=== PATIENT | male | born 1970 | race Two or more races ===

== ENCOUNTER 2021-08-04 13:27 | Emergency (ER) | payer MEDICAID, OTHER, SELFPAY ==
--- NOTE | ~2021-08-04 | XR_ITS ---
EXAMINATION: XR CHEST CLINICAL INFORMATION: Chest pain. COMPARISON: None TECHNIQUE: Frontal view of the chest was obtained. FINDINGS: No significant abnormality is noted involving the heart, lungs, mediastinum, bony thorax or soft tissues. XR/XR chest 1V IMPRESSION: Unremarkable examination.
[2021-08-04 13:38] VITALS: BP 140/95; PULSE 78; RESP 18; TEMP 36.9; O2SAT 98; BMI 27.6
--- NOTE | 2021-08-04 13:56 | ECG_ITS ---
Test Reason : CP Blood Pressure : / mmHG Vent. Rate : 079 BPM Atrial Rate : 079 BPM P-R Int : 142 ms QRS Dur : 098 ms QT Int : 368 ms P-R-T Axes : 072 022 013 degrees QTc Int : 421 ms Normal sinus rhythm Normal ECG No previous ECGs available Referred By: Generic ED Physician Electronically Signed By:NICK KEITH MD
[2021-08-04 14:11] LABS: MANUAL DIFF FLAG NO
[2021-08-04 14:17] LABS: Basophils Percent Auto 0.6 % (0-2); Eosinophils Absolute Auto 0.1 X10*3/uL (0.0-0.4); Hematocrit 42.7 % (42.0-52.0); Hemoglobin 14.1 g/dl (14.0-18.0); Imm Gran Abs Auto 0.03 X10*3/uL (0.00-0.03); Imm Gran Pct Auto 0.4 % (0.0-0.4); Lymphocytes Absolute Auto 2.2 X10*3/uL (1.2-4.9); Lymphocytes Percent Auto 31.6 % (20-40); Mean Corpuscular Hemoglobin 28.4 pg (27.0-33.0); Mean Corpuscular Volume 86.1 fL (80.0-98.0); Mean Platelet Volume 9.3 fL (9.4-12.4); Monocytes Absolute Auto 0.4 X10*3/uL (0.1-1.2); Monocytes Percent Auto 6.3 % (2-11); Neutrophils Absolute Auto 4.2 x10*3/uL (2.0-8.3); Neutrophils Percent Auto 60.1 % (45-73); Platelet Count 237 X10*3/uL (160-400); Red Blood Count 4.96 X10*6/uL (4.60-5.80)
[2021-08-04 14:42] LABS: Anion Gap 13 (12-20); Blood Urea Nitrogen 11 mg/dL (9-16); Calcium 9.9 mg/dL (8.4-10.2); Carbon Dioxide 24 mmol/L (22-29); Chloride 107 mmol/L (96-108); Creatinine Clr Calc Pharmacy 99.9; Estimated Glomerular Filt Rate > 60; Glucose Random 121 mg/dL (60-115); Potassium 3.9 mmol/L (3.3-5.1); Sodium 140 mmol/L (135-145)
[2021-08-04 15:06] LABS: Troponin-I High Sensitivity < 3.5 ng/L (<3.5-35.0)
[2021-08-04 15:49] VITALS: BP 130/82; PULSE 80; RESP 18; TEMP 36.7; O2SAT 97
[2021-08-04 16:00] VITALS: PULSE 89; RESP 15
[2021-08-04 16:14] VITALS: PULSE 83
--- NOTE | 2021-08-04 16:21 | PC.NURSE ---
pt a&ox3, vss, provider in room w pt - communicating via Hungarian uniformer. episodes of racing heart a couple of times daily, some chronic leg weakness/back pain, pt also reporting some ear/wax build up in both ear. no new orders at this time.
--- NOTE | 2021-08-04 16:24 | ED.CHESTPAIN ---
HPI - Chest Pain General Chief Complaint: Chest Pain Stated Complaint: chest pain Time Seen by Provider: 08/04/21 15:58 Source: patient, family and partition notcher History of Present Illness HPI narrative: Previously healthy 51-year-old Cameroonian speaking male, originally from [place], in this country for 3 years, but without PCP, presents with intermittent palpitations over the past several weeks. He attributed it to increased stress and anxiety. He has never had before. It lasts 10-15 minutes. It is not associated with pain. He denies any recent illnesses. He has not had any recent cardiac workups. No history of smoking. No history of hypertension, high cholesterol, or family cardiac history. Secondary complaint of occasionally his right leg feels weak after he has been walking while. This is also been intermittent. No weakness now. It only happens after exertion. No upper extremity symptoms. No facial symptoms. No speech issues. He has some low back pain occasionally feels radiate down the back of his leg. Thinks this may be related to the intermittent weakness as well. He has never as bad worked up. Third issue earwax buildup bilateral ears, left more so than right. Related Data Previous Rx's Medication Instructions Recorded carbamide peroxide 6.5 % ear drops 5 drp OTIC (EARS) Q12H 4 Days #15 08/04/21 (Debrox) ml sertraline 25 mg tablet (Zoloft) 25 mg PO DAILY #30 tab 08/04/21 Allergies Allergy/AdvReac Type Severity Reaction Status Date / Time No Known Allergies Allergy Verified 08/04/21 17:23 Review of Systems Constitutional: Comments: No weakness. No fevers or chills ENT: Comments: Ear wax buildup as mentioned without your pain Cardiovascular: Comments: Palpitations without chest pain Respiratory: Comments: No cough or dyspnea Gastrointestinal: Comments: No GI symptoms Musculoskeletal: Comments: Low back pain with occasional pain radiating down his right leg. None now Integumentary/Breasts: Comments: No rash Neurologic: Comments: Occasional right leg weakness with exertion. Psychiatric: Comments: Recent increase in anxiety. No SI or HI PMFSH Past Medical History Medical History Back pain Leg weakness Stress at work Social History Social History Alcohol intake: never Patient Tobacco Use Status: Never used Tobacco Use of substances other than those prescribed or required for medical reasons: No Advance Directives: No Advance Directives Information Provided: No Physical Exam Vital Signs: Vital Signs: Last Vital Signs Temp 98.1 F 08/04/21 15:49 Pulse 89 08/04/21 16:00 Resp 15 08/04/21 16:00 BP 130/82 08/04/21 15:49 Pulse Ox 97 08/04/21 15:49 BMI result Body Mass Index 27.6 Const: Other: Awake and alert in no acute distress HEENT: Other: Bilateral cerumen. Left greater than right Resp: Other: Clear and equal bilaterally. No wheezes rales or rhonchi. Cardio: Other: Regular rate and rhythm without murmurs rubs or gallops Skin: Other: Warm pink and dry without rash Neuro: Other: Nonfocal. Ambulatory without difficulty. No facial droop. Course Course Course Narrative: Palpitations. Potentially secondary to stress and anxiety and/or panic disorder. Cardiac ischemia Dysrhythmia such is paroxysmal AFib. Or SVT. Cerumen impaction Right leg sciatica No evidence for stroke or TIA. EKG normal sinus rhythm without ischemia or dysrhythmia. Patient on a monitor in the emergency department without dysrhythmia. Lab work is normal. Troponin is normal. X-ray is normal. I discussed all of these findings with the patient through video port use interpretation. We will refer to Cardiology for further workup of possible dysrhythmia and question of Girma type monitoring. PCP referral MDM - Chest Pain Lab Data Result diagrams: 08/04/21 14:05 08/04/21 14:05 Labs: Lab Results 08/04/21 08/04/21 08/04/21 Range/Units 14:05 14:05 14:05 WBC 7.0 (4.8-10.8) X10*3/uL RBC 4.96 (4.60-5.80) X10*6/uL Hgb 14.1 (14.0-18.0) g/dl Hct 42.7 (42.0-52.0) % MCV 86.1 (80.0-98.0) fL MCH 28.4 (27.0-33.0) pg MCHC 33.0 (31.0-36.0) g/dl RDW 13.0 (11.0-16.0) % Plt Count 237 (160-400) X10*3/uL MPV 9.3 L (9.4-12.4) fL Immature Gran % (Auto) 0.4 (0.0-0.4) % Neut % (Auto) 60.1 (45-73) % Lymph % (Auto) 31.6 (20-40) % [place] % (Auto) 6.3 (2-11) % Eos % (Auto) 1.0 (0-4) % Baso % (Auto) 0.6 (0-2) % Lymph # (Auto) 2.2 (1.2-4.9) X10*3/uL [place] # (Auto) 0.4 (0.1-1.2) X10*3/uL Eos # (Auto) 0.1 (0.0-0.4) X10*3/uL Baso # (Auto) 0.0 (0.0-0.2) X10*3/uL Abs Immat Gran (auto) 0.03 (0.00-0.03) X10*3/uL Absolute Neuts (auto) 4.2 (2.0-8.3) x10*3/uL Absolute Nucleated RBC 0.000 (0.0-0.012) X10*3/uL Nucleated RBC % (auto) 0.0 (0.0-0.2) /100WBC Sodium 140 (135-145) mmol/L Potassium 3.9 (3.3-5.1) mmol/L Chloride 107 (96-108) mmol/L Carbon Dioxide 24 (22-29) mmol/L Anion Gap 13 (12-20) BUN 11 (9-16) mg/dL Creatinine 0.91 (0.5-1.4) mg/dL Estim Creat Clear Calc 99.9 Estimated GFR > 60 Random Glucose 121 H (60-115) mg/dL Calcium 9.9 (8.4-10.2) mg/dL Troponin I High Sens < 3.5 (<3.5-35.0) ng/L Discharge Plan Discharge Clinical Impression: Heart palpitations, Anxiety, Cerumen impaction Patient Disposition: Home, Self-Care Instructions: Heart Palpitations (DC), Anxiety (ED) Additional Instructions: manuel ariane meredith [facility]. [phone] Prescriptions: New sertraline [Zoloft] 25 mg tablet 25 mg PO DAILY Qty: 30 0RF Debrox 6.5 % drops 5 drp otic (ears) Q12H 4 Days Qty: 15 0RF Referrals: Beto Dennis MD [Physician] - Interventions: ED Discharge Assessment Last Done: 08/04/21 16:53 Discharge Date/Time: 08/04/21 16:54 Print Language: Cameroonian
== END 2021-08-04 16:54 | disposition home or self-care (01) ==
PROVIDERS: Emergency Provider Emergency Medicine
DX: R00.2 Palpitations (principal); F41.9 Anxiety disorder, unspecified; H61.23 Impacted cerumen, bilateral
CPT/HCPCS: 36415; 71045; 80048; 84484; 85025; 93005; 99283; 99284

== ENCOUNTER 2021-11-03 20:35 | Emergency (ER) | payer MEDICAID, OTHER, SELFPAY ==
--- NOTE | ~2021-11-03 | CT_ITS ---
EXAMINATION: CT ABDOMEN AND PELVIS WITHOUT CONTRAST CLINICAL INFORMATION: Acute kidney injury COMPARISON: None TECHNIQUE: Multidetector volumetric imaging was performed from the superior aspect of the liver through the pubic symphysis. Sagittal and coronal reformatted images were obtained on the technologist's workstation. This CT examination was performed using dose optimization techniques as appropriate, variously including the following: *Automated exposure control *Adjustment of mA and/or kV according to patient size (this includes techniques or standardized protocols for targeted exams where dose is matched to indication/reason for exam; i.e. extremities or head) *Use of iterative reconstruction technique DLP: 539 mGy-cm FINDINGS: LUNG BASES: The visualized lung bases are unremarkable. LIVER, GALLBLADDER, AND BILIARY TREE: The liver is normal in size, shape, and attenuation. No focal hepatic lesion or biliary ductal dilatation is present. Gallbladder unremarkable. PANCREAS: Marked fatty atrophy. No pancreatic mass or inflammation. SPLEEN: Unremarkable. ADRENAL GLANDS: Unremarkable. KIDNEYS AND URETERS: There is a 8 x 3 mm calculus in the proximal right ureter, just distal to the ureteropelvic junction associated with mild upstream hydronephrosis and perinephric stranding. Chronic atrophy of the left kidney, with compensatory hypertrophy of the right kidney. There is a simple cyst in the upper pole of left kidney measuring 2.5 cm benign requiring no follow-up. A coarse cortical calcification is present in the left kidney. BLADDER: Unremarkable. GASTROINTESTINAL TRACT: Scattered colonic diverticula, most concentrated within the transverse colon. No evidence of diverticulitis. Normal appendix. Stomach and small bowel unremarkable. ABDOMINAL WALL: No significant hernia is appreciated. LYMPH NODES: Normal. VASCULAR: Unremarkable. PELVIC VISCERA: Prostatomegaly. Seminal vesicles unremarkable. OSSEOUS STRUCTURES: No acute or suspicious osseous abnormalities. CT/CT abdomen pelvis wo IV con IMPRESSION: * There is an 8 x 3 mm calculus in the proximal right ureter associated mild hydronephrosis. * Atrophic left kidney with compensatory hypertrophy of the right kidney. * Diverticulosis without evidence of diverticulitis. * Severe fatty atrophy of the pancreas.
[2021-11-03 21:39] VITALS: BP 132/86; PULSE 75; TEMP 37.3; O2SAT 98
[2021-11-03 21:42] VITALS: BP 132/86; PULSE 75; RESP 20; TEMP 37.3; O2SAT 98; BMI 34.4
[2021-11-03 22:30] LABS: MANUAL DIFF FLAG NO
[2021-11-03 22:34] LABS: Basophils Percent Auto 0.3 % (0-2); Eosinophils Percent Auto 0.2 % (0-4); Hematocrit 41.5 % (42.0-52.0); Hemoglobin 13.9 g/dl (14.0-18.0); Imm Gran Abs Auto 0.03 X10*3/uL (0.00-0.03); Imm Gran Pct Auto 0.3 % (0.0-0.4); Lymphocytes Absolute Auto 1.4 X10*3/uL (1.2-4.9); Lymphocytes Percent Auto 13.6 % (20-40); Mean Corpuscular HGB Conc 33.5 g/dl (31.0-36.0); Mean Corpuscular Hemoglobin 28.7 pg (27.0-33.0); Mean Corpuscular Volume 85.6 fL (80.0-98.0); Mean Platelet Volume 9.3 fL (9.4-12.4); Monocytes Absolute Auto 0.4 X10*3/uL (0.1-1.2); Monocytes Percent Auto 3.9 % (2-11); Neutrophils Absolute Auto 8.2 x10*3/uL (2.0-8.3); Neutrophils Percent Auto 81.7 % (45-73); Platelet Count 231 X10*3/uL (160-400); Red Blood Count 4.85 X10*6/uL (4.60-5.80); Red Cell Distribution Width 12.7 % (11.0-16.0)
[2021-11-03 22:58] LABS: Alanine Aminotransferase 22 U/L (0-40); Albumin Level 4.6 g/dL (3.5-5.0); Alkaline Phosphatase 74 U/L (39-117); Anion Gap 14 (12-20); Aspartate Amino Transferase 20 U/L (5-37); Bilirubin Total 0.6 mg/dL (0.0-1.0); Blood Urea Nitrogen 24 mg/dL (9-16); Calcium 9.1 mg/dL (8.4-10.2); Carbon Dioxide 24 mmol/L (22-29); Chloride 107 mmol/L (96-108); Creatinine Clr Calc Pharmacy 46.2; Estimated Glomerular Filt Rate 38; Glucose Random 129 mg/dL (60-115); Potassium 4.6 mmol/L (3.3-5.1); Sodium 140 mmol/L (135-145); Total Protein 7.1 g/dL (6.5-8.0)
[2021-11-03 23:52] VITALS: BP 140/88; PULSE 71; RESP 16; TEMP 36.7; O2SAT 98
--- NOTE | 2021-11-04 00:11 | ED.ABDPAIN ---
HPI - Abdominal Pain General Chief Complaint: Abdominal Pain Stated Complaint: right side abd pain Source: patient Mode of arrival: ambulatory Limitations: language barrier History of Present Illness HPI narrative: 51-year-old male presents with 1 day of right-sided flank and abdomen pain. States the pain is a sudden onset, and is now resolved. He does not report fevers or chills, trauma, or prior abdominal surgeries. He does have a history of atrophic left kidney. MD elicited complaint: abdominal pain Onset (ago): day(s) (1) Pain Consistency: intermittent and now resolved Location: RLQ and R flank Severity: moderate Pain scale (0-10): 6 Quality: stabbing and sharp Radiation: none Migration to: no migration Associated symptoms: denies other symptoms Related Data Previous Rx's Medication Instructions Recorded carbamide peroxide 6.5 % ear drops 5 drp otic (ears) Q12H 4 days #15 08/04/21 (Debrox) mL sertraline 25 mg tablet (Zoloft) 25 mg PO DAILY #30 tabs 08/04/21 levofloxacin 750 mg tablet 750 mg PO Q24H 9 days #9 tabs 11/04/21 Allergies Allergy/AdvReac Type Severity Reaction Status Date / Time No Known Allergies Allergy Verified 08/04/21 17:23 Review of Systems Review of Systems Constitutional: No Fever, No Chills ENT/Mouth: No Ear Pain, No Hoarseness, No sore throat Eyes: No Eye Pain, No Swelling, No Redness, No Foreign Body Cardiovascular: No Chest Pain, No SOB Respiratory: No Cough, No Dyspnea Gastrointestinal: No Nausea, No Vomiting, No Diarrhea, positive right-sided abdominal Pain Genitourinary: No Dysuria, No Hematuria Musculoskeletal: No joint pain, No Myalgias, No Joint Swelling Skin: No Skin lacerations, No rash Neuro: No Weakness, No Numbness, No Paresthesias, No Loss of Consciousness, No Dizziness, No Headache Psych: No Anxiety/Panic, No Depression Heme/Lymph: no easy bruising, no Lymphadenopathy Endocrine: No Polyuria, No Polydipsia Yes all other systems are reviewed and are negative [facility] Past Medical History Attestation statement: The following information was validated with the patient. Source: old records reviewed Medical History Back pain Leg weakness Stress at work Social History Social History Alcohol intake: never Patient Tobacco Use Status: Never used Tobacco Advance Directives: No Advance Directives Information Provided: Yes Physical Exam ED Vital Signs: Vital Signs - 24 hr 11/03/21 21:39 11/03/21 21:42 11/03/21 23:52 Temperature 99.1 F 99.1 F 98.0 F Pulse Rate 75 75 71 Respiratory Rate 20 16 Blood Pressure 132/86 132/86 140/88 H Pulse Oximetry 98 98 98 Oxygen Delivery Method Room Air Room Air Room Air 11/04/21 02:00 Temperature 97.5 F Pulse Rate 88 Respiratory Rate 16 Blood Pressure 128/81 Pulse Oximetry 98 Oxygen Delivery Method Room Air BMI result Body Mass Index 34.4 Appearance: Alert. Oriented X3. No acute distress. Eyes: Pupils equal, round and reactive to light. ENT: Pharynx normal. Neck: Normal inspection. Neck supple. CVS: Normal heart rate and rhythm. Pulses normal. Respiratory: No respiratory distress. Breath sounds normal. Abdomen: Soft and nontender. Skin: Skin warm and dry. Normal skin color. Normal skin turgor. Extremities: No lower extremity edema. Gait well-balanced well coordinated. Neuro: No motor deficit. No sensory deficit. Cranial nerves 2-12 intact. Course Course Course Narrative: 51-year-old male presents for right-sided abdominal pain that has now resolved. Labs were drawn while patient was in the emergency department waiting room which indicated a BUN of 24 and a creatinine of 1.88, prior lab values from 08/04/2021 indicated a BUN of 11 and creatinine 0.91. Considering patient's history of atrophic left kidney, will order CT scan of abdomen pelvis to further investigate his sudden onset of right lower quadrant abdominal pain and JOE. Will order 2 L of fluid at this time. 01:40 CT scan of abdomen pelvis indicates an 8 mm x 3 mm calculus in the proximal right ureter with mild hydronephrosis with perinephric stranding. Will give 3 L of fluids, and Levaquin p.o.. Patient states to feel well, is afebrile, and would like to be discharged home if chemistries improved. 03:44 BUN 17, creatinine 1.01, I will discharge this patient home with a prescription for Levaquin for the next 9 days as he did receive the 1st dose in the emergency department. He will follow-up with Dr. Mott. Patient and patient's family verbalized understanding of and agrees to plan of care discharge home. Translating stormy utilized for Greek to Romansh translation. Patient verbalized understanding of and agrees to plan of care discharge home. Verbalized understanding of signs symptoms indicating need for emergent intervention. MDM - Abdominal Pain Differential Diagnosis Differential diagnosis: Likely abdominal pain, acute appendicitis, calculus of kidney, diverticulitis and pancreatitis Medical Records Attestation: I reviewed the patient's medical records. Lab Data Attestation: I reviewed the patient's lab results. Result diagrams: 11/03/21 22:26 11/03/21 22:26 Labs: Lab Results 11/03/21 11/03/21 11/04/21 Range/Units 22:26 22:26 00:25 WBC 10.0 (4.8-10.8) X10*3/uL RBC 4.85 (4.60-5.80) X10*6/uL Hgb 13.9 L (14.0-18.0) g/dl Hct 41.5 L (42.0-52.0) % MCV 85.6 (80.0-98.0) fL MCH 28.7 (27.0-33.0) pg MCHC 33.5 (31.0-36.0) g/dl RDW 12.7 (11.0-16.0) % Plt Count 231 (160-400) X10*3/uL MPV 9.3 L (9.4-12.4) fL Immature Gran % (Auto) 0.3 (0.0-0.4) % Neut % (Auto) 81.7 H (45-73) % Lymph % (Auto) 13.6 L (20-40) % [place] % (Auto) 3.9 (2-11) % Eos % (Auto) 0.2 (0-4) % Baso % (Auto) 0.3 (0-2) % Lymph # (Auto) 1.4 (1.2-4.9) X10*3/uL [place] # (Auto) 0.4 (0.1-1.2) X10*3/uL Eos # (Auto) 0.0 (0.0-0.4) X10*3/uL Baso # (Auto) 0.0 (0.0-0.2) X10*3/uL Abs Immat Gran (auto) 0.03 (0.00-0.03) X10*3/uL Absolute Neuts (auto) 8.2 (2.0-8.3) x10*3/uL Absolute Nucleated RBC 0.000 (0.0-0.012) X10*3/uL Nucleated RBC % (auto) 0.0 (0.0-0.2) /100WBC Sodium 140 (135-145) mmol/L Potassium 4.6 (3.3-5.1) mmol/L Chloride 107 (96-108) mmol/L Carbon Dioxide 24 (22-29) mmol/L Anion Gap 14 (12-20) BUN 24 H D (9-16) mg/dL Creatinine 1.88 H (0.5-1.4) mg/dL Estim Creat Clear Calc 46.2 Estimated GFR 38 Random Glucose 129 H (60-115) mg/dL Calcium 9.1 D (8.4-10.2) mg/dL Magnesium (1.6-2.6) mg/dL Total Bilirubin 0.6 (0.0-1.0) mg/dL AST 20 (5-37) U/L ALT 22 (0-40) U/L Alkaline Phosphatase 74 (39-117) U/L Troponin I High Sens (<3.5-35.0) ng/L Total Protein 7.1 (6.5-8.0) g/dL Albumin 4.6 (3.5-5.0) g/dL Urine Color Yellow Urine Appearance Clear Urine pH 5.0 (5.0-9.0) Ur Specific [place] <= 1.005 (1.005-1.025) Urine Protein Negative (Neg-Trace) mg/dL Urine Glucose (UA) Negative (Negative) mg/dL Urine Ketones Negative (Negative) mg/dL Urine Blood Moderate (2+) H (Negative) Urine Nitrite Negative (Negative) Ur Leukocyte Esterase Negative (Negative) Urine RBC 0-2 (0-2) /HPF Urine WBC 0-5 (0-5) /HPF Ur Squamous Epith Cells 0-2 (0-2) /HPF Urine Bacteria None Seen (None Seen) Hyaline Casts 0-2 (0-2) /LPF COVID-19 (ZHANNA) (Negative) COVID-19 Clin Com 11/04/21 11/04/21 11/04/21 Range/Units 00:25 00:25 00:25 WBC (4.8-10.8) X10*3/uL RBC (4.60-5.80) X10*6/uL Hgb (14.0-18.0) g/dl Hct (42.0-52.0) % MCV (80.0-98.0) fL MCH (27.0-33.0) pg MCHC (31.0-36.0) g/dl RDW (11.0-16.0) % Plt Count (160-400) X10*3/uL MPV (9.4-12.4) fL Immature Gran % (Auto) (0.0-0.4) % Neut % (Auto) (45-73) % Lymph % (Auto) (20-40) % [place] % (Auto) (2-11) % Eos % (Auto) (0-4) % Baso % (Auto) (0-2) % Lymph # (Auto) (1.2-4.9) X10*3/uL [place] # (Auto) (0.1-1.2) X10*3/uL Eos # (Auto) (0.0-0.4) X10*3/uL Baso # (Auto) (0.0-0.2) X10*3/uL Abs Immat Gran (auto) (0.00-0.03) X10*3/uL Absolute Neuts (auto) (2.0-8.3) x10*3/uL Absolute Nucleated RBC (0.0-0.012) X10*3/uL Nucleated RBC % (auto) (0.0-0.2) /100WBC Sodium (135-145) mmol/L Potassium (3.3-5.1) mmol/L Chloride (96-108) mmol/L Carbon Dioxide (22-29) mmol/L Anion Gap (12-20) BUN (9-16) mg/dL Creatinine (0.5-1.4) mg/dL Estim Creat Clear Calc Estimated GFR Random Glucose (60-115) mg/dL Calcium (8.4-10.2) mg/dL Magnesium 2.1 (1.6-2.6) mg/dL Total Bilirubin (0.0-1.0) mg/dL AST (5-37) U/L ALT (0-40) U/L Alkaline Phosphatase (39-117) U/L Troponin I High Sens < 3.5 (<3.5-35.0) ng/L Total Protein (6.5-8.0) g/dL Albumin (3.5-5.0) g/dL Urine Color Urine Appearance Urine pH (5.0-9.0) Ur Specific [place] (1.005-1.025) Urine Protein (Neg-Trace) mg/dL Urine Glucose (UA) (Negative) mg/dL Urine Ketones (Negative) mg/dL Urine Blood (Negative) Urine Nitrite (Negative) Ur Leukocyte Esterase (Negative) Urine RBC (0-2) /HPF Urine WBC (0-5) /HPF Ur Squamous Epith Cells (0-2) /HPF Urine Bacteria (None Seen) Hyaline Casts (0-2) /LPF COVID-19 (ZHANNA) Negative (Negative) COVID-19 Clin Com See Note Imaging Data CT abdomen pelvis: Attestation: I personally reviewed and interpreted this imaging study as follows: Radiologist's impression: EXAMINATION: CT ABDOMEN AND PELVIS WITHOUT CONTRAST? CLINICAL INFORMATION: Acute kidney injury? COMPARISON: None? TECHNIQUE: Multidetector volumetric imaging was performed from the superior aspect of the liver through the pubic symphysis. Sagittal and coronal reformatted images were obtained on the technologist's workstation.? This CT examination was performed using dose optimization techniques as appropriate, variously including the following: *Automated exposure control *Adjustment of mA and/or kV according to patient size (this includes techniques or standardized protocols for targeted exams where dose is matched to indication/reason for exam; i.e. extremities or head) *Use of iterative reconstruction technique DLP: 539 mGy-cm FINDINGS: LUNG BASES: The visualized lung bases are unremarkable.? LIVER, GALLBLADDER, AND BILIARY TREE: The liver is normal in size, shape, and attenuation. No focal hepatic lesion or biliary ductal dilatation is present. Gallbladder unremarkable.? PANCREAS: Marked fatty atrophy. No pancreatic mass or inflammation.? SPLEEN: Unremarkable.? ADRENAL GLANDS: Unremarkable.? KIDNEYS AND URETERS: There is a 8 x 3 mm calculus in the proximal right ureter, just distal to the ureteropelvic junction associated with mild upstream hydronephrosis and perinephric stranding. Chronic atrophy of the left kidney, with compensatory hypertrophy of the right kidney. There is a simple cyst in the upper pole of left kidney measuring 2.5 cm benign requiring no follow-up. A coarse cortical calcification is present in the left kidney.? BLADDER: Unremarkable.? GASTROINTESTINAL TRACT: Scattered colonic diverticula, most concentrated within the transverse colon. No evidence of diverticulitis. Normal appendix. Stomach and small bowel unremarkable. ABDOMINAL WALL: No significant hernia is appreciated.? LYMPH NODES: Normal. VASCULAR: Unremarkable. PELVIC VISCERA: Prostatomegaly. Seminal vesicles unremarkable.? OSSEOUS STRUCTURES: No acute or suspicious osseous abnormalities.? CT/CT abdomen pelvis wo IV con IMPRESSION: *? There is an 8 x 3 mm calculus in the proximal right ureter associated mild hydronephrosis. *? Atrophic left kidney with compensatory hypertrophy of the right kidney. *? Diverticulosis without evidence of diverticulitis. *? Severe fatty atrophy of the pancreas.? ? ? Discharge Plan Discharge Clinical Impression: Kidney stone, JOE (acute kidney injury) Patient Disposition: Home, Self-Care Instructions: Acute Kidney Injury (DC), Kidney Stones (ED) Additional Instructions: Voc? foi avaliado para yony abdominal. Voc? tem audi pedra nos rins de 8 mm x 3 mm no ureter direito com incha?o do rim. Estamos tratando a pielonefrite com Levaquin pelos pr?ximos 9 saucedo. Demos-lhe a sua 1? dose no departamento de emerg?ncia. Por favor, tome Levaquin 750 mg diariamente pelos pr?ximos 9 saucedo a partir de 04/14/2021. Conseguimos corrigir sua les?o renal aguda com fluidos intravenosos. Por favor, continue a beber bastante l?quido. Acompanhamento com m?dico de cuidados prim?robledo para valores laboratoriais repetidos na pr?xima semana. Acompanhamento com o Dr. Mott. Ligue e solicite agendamento para avalia??o. Obrigado por escolher ariane pronto-joaquina para avalia??o. Por favor, fa?a o acompanhamento com o m?dico de cuidados prim?robledo, conforme necess?li. Retorne ao departamento de emerg?ncia para quaisquer sintomas novos, preocupantes ou agravantes. You were evaluated for abdominal pain. You have an 8 mm x 3 mm kidney stone to the right ureter with swelling of the kidney. We are treating for pyelonephritis with Levaquin for the next 9 days. We gave you your 1st dose in the emergency department. Please take Levaquin 750 mg daily for the next 9 days starting on 11/05/2021. We were able to correct your acute kidney injury with IV fluids. Please continue to drink plenty of fluids. Follow-up with primary care physician for repeat lab values next week. Follow-up with Dr. Mott. Please call and request appointment for evaluation. Thank you for choosing this emergency department for evaluation. Please follow-up with primary care physician as needed. Return to the emergency department for any new, concerning, or worsening symptoms. Prescriptions: New levofloxacin 750 mg tablet 750 mg PO Q24H 9 Days Qty: 9 0RF No Action sertraline [Zoloft] 25 mg tablet 25 mg PO DAILY Qty: 30 0RF Debrox 6.5 % drops 5 drp otic (ears) Q12H 4 Days Qty: 15 0RF Referrals: Nhan Mott MD [Physician] - 5 days (Kidney stones)
--- NOTE | 2021-11-04 00:14 | ECG_ITS ---
Test Reason : ABD PAIN Blood Pressure : / mmHG Vent. Rate : 081 BPM Atrial Rate : 081 BPM P-R Int : 158 ms QRS Dur : 104 ms QT Int : 374 ms P-R-T Axes : 065 009 014 degrees QTc Int : 434 ms Normal sinus rhythm Normal ECG When compared with ECG of 04-AUG-2021 13:55, No significant change was found Referred By: Karey Landaverde Electronically Signed By:KAMI URENA
[2021-11-04 00:33] LABS: Appearance Urine Clear; Color Urine Yellow; Glucose Urine UA Negative (Negative); Leukocyte Esterase Urine Negative (Negative); Nitrite Urine Negative (Negative); Specific Gravity - Urine <= 1.005 (1.005-1.025); Urine Blood Moderate (2+) (Negative); Urine Ketones Negative (Negative); Urine Protein Negative (Neg-Trace)
[2021-11-04 00:45] LABS: COVID-19 Test Negative (Negative)
[2021-11-04 00:50] LABS: Magnesium 2.1 mg/dL (1.6-2.6); Troponin-I High Sensitivity < 3.5 ng/L (<3.5-35.0)
[2021-11-04 00:51] LABS: Bacteria Urine None Seen (None Seen); Hyaline Casts Urine 0-2 /LPF (0-2); RBC Urine 0-2 /HPF (0-2); Squamous Epithelial Cell Urine 0-2 /HPF (0-2); WBC Urine 0-5 /HPF (0-5)
[2021-11-04] MEDS: 0.9 % Sodium Chloride 1,000 ML 999 ML IVCONT ×3 (01:05→02:57)
[2021-11-04 02:00] VITALS: BP 128/81; PULSE 88; RESP 16; TEMP 36.4; O2SAT 98
[2021-11-04] MEDS: levoFLOXacin 750 MG TABLET PO (02:10)
[2021-11-04 03:38] LABS: Anion Gap 14 (12-20); Blood Urea Nitrogen 17 mg/dL (9-16); Calcium 8.3 mg/dL (8.4-10.2); Carbon Dioxide 22 mmol/L (22-29); Chloride 113 mmol/L (96-108); Estimated Glomerular Filt Rate > 60; Glucose Random 99 mg/dL (60-115); Potassium 4.5 mmol/L (3.3-5.1); Sodium 144 mmol/L (135-145)
== END 2021-11-04 04:18 | disposition home or self-care (01) ==
PROVIDERS: Nurse Practitioner Family; Emergency Provider Emergency Medicine
DX: N20.0 Calculus of kidney (principal); R10.31 Right lower quadrant pain; Z79.899 Other long term (current) drug therapy; Z20.822 Contact with and (suspected) exposure to COVID-19
CPT/HCPCS: 36415; 74176; 80048; 80053; 81001; 83735; 84484; 85025; 87635; 93005; 96360; 96361; 99284

== ENCOUNTER 2021-11-30 10:05 | Emergency (ER) | payer MEDICAID, OTHER, SELFPAY ==
--- NOTE | ~2021-11-30 | XR_ITS ---
EXAMINATION: XR ABDOMEN KUB CLINICAL INDICATION: Constipation COMPARISON: None TECHNIQUE: AP view of the abdomen. FINDINGS: The bowel gas pattern is normal with no evidence of ileus or obstruction. No free air. No unusual soft tissue calcifications are noted. There are degenerative changes of the spine. XR/XR KUB IMPRESSION: Unremarkable examination.
--- NOTE | ~2021-11-30 | XR_ITS ---
EXAMINATION: XR CHEST CLINICAL INFORMATION: Constipation COMPARISON: Chest radiograph 08/04/2021 TECHNIQUE: Frontal view of the chest was obtained. FINDINGS: Since the prior study, a square generator pack without leads overlies the left chest. The exam is otherwise unremarkable. No infiltrates, effusions or lung masses are seen. Heart size is normal. No evidence of CHF. There is an old healed left clavicular fracture and mild biconvex thoracolumbar scoliosis with degenerative changes in the spine. XR/XR chest 1V IMPRESSION: No acute intrathoracic disease.
[2021-11-30 10:14] VITALS: BP 135/85; PULSE 67; RESP 18; TEMP 36.9; O2SAT 98; BMI 25.2
[2021-11-30 10:41] LABS: Anion Gap 12 (12-20); Blood Urea Nitrogen 21 mg/dL (9-16); Calcium 9.4 mg/dL (8.4-10.2); Carbon Dioxide 26 mmol/L (22-29); Chloride 107 mmol/L (96-108); Creatinine Clr Calc Pharmacy 99.9; Estimated Glomerular Filt Rate > 60; Glucose Random 120 mg/dL (60-115); Potassium 4.3 mmol/L (3.3-5.1); Sodium 141 mmol/L (135-145)
[2021-11-30 11:05] LABS: COVID-19 Test Negative (Negative); IDNOW Serial# 9DB6401D
[2021-11-30 11:33] LABS: Alanine Aminotransferase 24 U/L (0-40); Albumin Level 4.5 g/dL (3.5-5.0); Alkaline Phosphatase 73 U/L (39-117); Aspartate Amino Transferase 17 U/L (5-37); Bilirubin Direct 0.2 mg/dL (0.0-0.5); Bilirubin Total 0.6 mg/dL (0.0-1.0); Lipase 11 U/L (8-78); Total Protein 6.9 g/dL (6.5-8.0)
[2021-11-30 15:20] LABS: Basophils Absolute Auto 0.1 X10*3/uL (0.0-0.2); Basophils Percent Auto 0.8 % (0-2); Eosinophils Percent Auto 0.7 % (0-4); Hematocrit 43.7 % (42.0-52.0); Hemoglobin 14.5 g/dl (14.0-18.0); Imm Gran Abs Auto 0.01 X10*3/uL (0.00-0.03); Imm Gran Pct Auto 0.2 % (0.0-0.4); Lymphocytes Absolute Auto 2.3 X10*3/uL (1.2-4.9); Lymphocytes Percent Auto 37.7 % (20-40); MANUAL DIFF FLAG NO; Mean Corpuscular HGB Conc 33.2 g/dl (31.0-36.0); Mean Corpuscular Hemoglobin 28.4 pg (27.0-33.0); Mean Corpuscular Volume 85.7 fL (80.0-98.0); Mean Platelet Volume 9.2 fL (9.4-12.4); Monocytes Absolute Auto 0.5 X10*3/uL (0.1-1.2); Monocytes Percent Auto 7.7 % (2-11); Neutrophils Absolute Auto 3.3 x10*3/uL (2.0-8.3); Neutrophils Percent Auto 52.9 % (45-73); Platelet Count 222 X10*3/uL (160-400); Red Cell Distribution Width 12.8 % (11.0-16.0); White Blood Count 6.1 X10*3/uL (4.8-10.8)
--- NOTE | 2021-11-30 18:46 | ED.ABDPAIN ---
HPI - Abdominal Pain General Chief Complaint: Abdominal Pain Stated Complaint: abd pain Time Seen by Provider: 11/30/21 11:13 Source: patient Mode of arrival: ambulatory Limitations: no limitations History of Present Illness HPI narrative: Patient comes to the emergency room complaining of constipation. Patient states that approximately 10 days ago he was diagnosed with a UTI, he was given 10 days of ciprofloxacin. Patient states that the antibiotic made him very constipated. The patient states that he has tried some home remedies and foem-pdo-dhmlykz laxatives, but has not had a good bowel movement for the last 10 days. Patient denies significant abdominal pain, no UTI symptoms, no fever or chills Related Data Previous Rx's Medication Instructions Recorded carbamide peroxide 6.5 % ear drops 5 drp otic (ears) Q12H 4 days #15 08/04/21 (Debrox) mL sertraline 25 mg tablet (Zoloft) 25 mg PO DAILY #30 tabs 08/04/21 levofloxacin 750 mg tablet 750 mg PO Q24H 9 days #9 tabs 11/04/21 polyethylene glycol 3350 17 17 g PO BID #119 grams 11/30/21 gram/dose oral powder (Miralax) sodium phosphates 19 gram-7 118 ml AL DAILY PRN constipation 11/30/21 gram/118 mL enema (Fleet Enema) #133 mL Allergies Allergy/AdvReac Type Severity Reaction Status Date / Time No Known Allergies Allergy Verified 08/04/21 17:23 Review of Systems Review of Systems Constitutional : No Weight loss, No Fever, No Chills, No Night Sweats, No Fatigue, No Malaise ENT/Mouth : No Hearing loss, No Ear Pain, No Nasal Congestion, No Sinus Pain, No Hoarseness, No sore throat, No Rhinorrhea, No Swallowing Difficulty Eyes: No Eye Pain, No Swelling, No Redness, No Foreign Body, No Discharge, No Vision Changes Cardiovascular : No Chest Pain, No SOB, No Dyspnea on Exertion, No Orthopnea, No Edema, No Palpitations Respiratory : No Cough, No Sputum, No Wheezing, No Smoke Exposure, No Dyspnea Gastrointestinal : No Nausea, No Vomiting, No Diarrhea, complaining of Constipation, No abdominal Pain, No Hematochezia, No Melena Genitourinary : no irregular bleeding, No Dysuria, No Urinary Frequency, No Hematuria, No Urinary Incontinence, No Urgency, No Flank Pain, No Urinary Flow Changes, No Hesitancy Musculoskeletal : No joint pain, No Myalgias, No Joint Swelling Skin : No Skin Lesions, No rash Neuro : No Weakness, No Numbness, No Paresthesias, No Loss of Consciousness, No Dizziness, No Headache Psych : No Anxiety/Panic, No Depression, No SI/HI/AH/VH, No Social Issues, Heme/Lymph: No Bruising, No Bleeding,No Lymphadenopathy Endocrine : No Polyuria, No Polydipsia, No Temperature Intolerance [facility] Past Medical History Medical History Back pain Leg weakness Stress at work Social History Social History Alcohol intake: never Patient Tobacco Use Status: Never used Tobacco Advance Directives: No Advance Directives Information Provided: Yes Physical Exam ED Vital Signs: Vital Signs - 24 hr 11/30/21 10:14 11/30/21 19:49 Temperature 98.4 F Pulse Rate 67 68 Respiratory Rate 18 18 Blood Pressure 135/85 128/88 Pulse Oximetry 98 97 Oxygen Delivery Method Room Air Room Air BMI result Body Mass Index 25.2 Const Other: Appearance: Alert. Oriented X3. No acute distress. Well-appearing Eyes: Pupils equal, round and reactive to light. ENT: Pharynx normal. Neck: Normal inspection. Neck supple. No lymph nodes noted. No crepitus CVS: Normal heart rate and rhythm. Pulses normal. Normal S1 and S2 Respiratory: No respiratory distress. Breath sounds normal. No Wheezing. No rales Abdomen: Soft and nontender. No rigidity. No distention. No CVA tenderness Skin: Skin warm and dry. Normal skin color. Normal skin turgor. Extremities: No lower extremity edema. No Lacerations. No Rash Neuro: Oriented X 3. No motor deficit. No sensory deficit. Moving all extremities. No slurred speech. CN 2 through 12 grossly intact Psych: calm, cooperative, normal affect Course Course Course Narrative: Patient is comfortable, no acute abdominal discomfort. KUB shows no SBO or perforation. Medication home with the patient's pharmacy MDM - Abdominal Pain Lab Data Result diagrams: 11/30/21 15:15 11/30/21 10:22 Labs: Lab Results 11/30/21 11/30/21 11/30/21 Range/Units 10:22 10:22 15:15 WBC 6.1 (4.8-10.8) X10*3/uL RBC 5.10 (4.60-5.80) X10*6/uL Hgb 14.5 (14.0-18.0) g/dl Hct 43.7 (42.0-52.0) % MCV 85.7 (80.0-98.0) fL MCH 28.4 (27.0-33.0) pg MCHC 33.2 (31.0-36.0) g/dl RDW 12.8 (11.0-16.0) % Plt Count 222 (160-400) X10*3/uL MPV 9.2 L (9.4-12.4) fL Immature Gran % (Auto) 0.2 (0.0-0.4) % Neut % (Auto) 52.9 (45-73) % Lymph % (Auto) 37.7 (20-40) % [place] % (Auto) 7.7 (2-11) % Eos % (Auto) 0.7 (0-4) % Baso % (Auto) 0.8 (0-2) % Lymph # (Auto) 2.3 (1.2-4.9) X10*3/uL [place] # (Auto) 0.5 (0.1-1.2) X10*3/uL Eos # (Auto) 0.0 (0.0-0.4) X10*3/uL Baso # (Auto) 0.1 (0.0-0.2) X10*3/uL Abs Immat Gran (auto) 0.01 (0.00-0.03) X10*3/uL Absolute Neuts (auto) 3.3 (2.0-8.3) x10*3/uL Absolute Nucleated RBC 0.000 (0.0-0.012) X10*3/uL Nucleated RBC % (auto) 0.0 (0.0-0.2) /100WBC Sodium 141 (135-145) mmol/L Potassium 4.3 (3.3-5.1) mmol/L Chloride 107 (96-108) mmol/L Carbon Dioxide 26 (22-29) mmol/L Anion Gap 12 (12-20) BUN 21 H (9-16) mg/dL Creatinine 0.91 (0.5-1.4) mg/dL Estim Creat Clear Calc 99.9 Estimated GFR > 60 Random Glucose 120 H (60-115) mg/dL Calcium 9.4 D (8.4-10.2) mg/dL Total Bilirubin 0.6 (0.0-1.0) mg/dL Direct Bilirubin 0.2 (0.0-0.5) mg/dL AST 17 (5-37) U/L ALT 24 (0-40) U/L Alkaline Phosphatase 73 (39-117) U/L Total Protein 6.9 (6.5-8.0) g/dL Albumin 4.5 (3.5-5.0) g/dL Lipase 11 (8-78) U/L Urine Color Urine Appearance Urine pH (5.0-9.0) Ur Specific [place] (1.005-1.025) Urine Protein (Neg-Trace) mg/dL Urine Glucose (UA) (Negative) mg/dL Urine Ketones (Negative) mg/dL Urine Blood (Negative) Urine Nitrite (Negative) Ur Leukocyte Esterase (Negative) COVID-19 (ZHANNA) Negative (Negative) COVID-19 Clin Com See Note 11/30/21 Range/Units 18:57 WBC (4.8-10.8) X10*3/uL RBC (4.60-5.80) X10*6/uL Hgb (14.0-18.0) g/dl Hct (42.0-52.0) % MCV (80.0-98.0) fL MCH (27.0-33.0) pg MCHC (31.0-36.0) g/dl RDW (11.0-16.0) % Plt Count (160-400) X10*3/uL MPV (9.4-12.4) fL Immature Gran % (Auto) (0.0-0.4) % Neut % (Auto) (45-73) % Lymph % (Auto) (20-40) % [place] % (Auto) (2-11) % Eos % (Auto) (0-4) % Baso % (Auto) (0-2) % Lymph # (Auto) (1.2-4.9) X10*3/uL [place] # (Auto) (0.1-1.2) X10*3/uL Eos # (Auto) (0.0-0.4) X10*3/uL Baso # (Auto) (0.0-0.2) X10*3/uL Abs Immat Gran (auto) (0.00-0.03) X10*3/uL Absolute Neuts (auto) (2.0-8.3) x10*3/uL Absolute Nucleated RBC (0.0-0.012) X10*3/uL Nucleated RBC % (auto) (0.0-0.2) /100WBC Sodium (135-145) mmol/L Potassium (3.3-5.1) mmol/L Chloride (96-108) mmol/L Carbon Dioxide (22-29) mmol/L Anion Gap (12-20) BUN (9-16) mg/dL Creatinine (0.5-1.4) mg/dL Estim Creat Clear Calc Estimated GFR Random Glucose (60-115) mg/dL Calcium (8.4-10.2) mg/dL Total Bilirubin (0.0-1.0) mg/dL Direct Bilirubin (0.0-0.5) mg/dL AST (5-37) U/L ALT (0-40) U/L Alkaline Phosphatase (39-117) U/L Total Protein (6.5-8.0) g/dL Albumin (3.5-5.0) g/dL Lipase (8-78) U/L Urine Color Yellow Urine Appearance Clear Urine pH 6.5 (5.0-9.0) Ur Specific [place] <= 1.005 (1.005-1.025) Urine Protein Negative (Neg-Trace) mg/dL Urine Glucose (UA) Negative (Negative) mg/dL Urine Ketones Negative (Negative) mg/dL Urine Blood Negative (Negative) Urine Nitrite Negative (Negative) Ur Leukocyte Esterase Negative (Negative) COVID-19 (ZHANNA) (Negative) COVID-19 Clin Com Discharge Plan Discharge Clinical Impression: Constipation Patient Disposition: Home, Self-Care Instructions: Constipation (ED), High Fiber Diet (ED), Fleet Enema (ED) Additional Instructions: Drink plenty of fluids. Please follow-up with your primary care physician tomorrow. If you have any worsening or new symptoms, please return to the emergency room or call 911 Prescriptions: New Fleet Enema 19-7 gram/118 mL enema 118 ml AL DAILY PRN (Reason: constipation) Qty: 133 0RF polyethylene glycol 3350 [Miralax] 17 gram/dose powder 17 g PO BID Qty: 119 0RF No Action levofloxacin 750 mg tablet 750 mg PO Q24H 9 Days Qty: 9 0RF sertraline [Zoloft] 25 mg tablet 25 mg PO DAILY Qty: 30 0RF Debrox 6.5 % drops 5 drp otic (ears) Q12H 4 Days Qty: 15 0RF
[2021-11-30 19:10] LABS: Appearance Urine Clear; Color Urine Yellow; Glucose Urine UA Negative (Negative); Leukocyte Esterase Urine Negative (Negative); Nitrite Urine Negative (Negative); PH 6.5 (5.0-9.0); Specific Gravity - Urine <= 1.005 (1.005-1.025); Urine Blood Negative (Negative); Urine Ketones Negative (Negative); Urine Protein Negative (Neg-Trace)
[2021-11-30 19:49] VITALS: BP 128/88; PULSE 68; RESP 18; O2SAT 97
[2021-11-30 21:36] VITALS: BP 129/88; PULSE 68; RESP 16; O2SAT 99
== END 2021-11-30 21:37 | disposition home or self-care (01) ==
PROVIDERS: Emergency Provider Emergency Medicine
DX: K59.00 Constipation, unspecified (principal); R10.9 Unspecified abdominal pain; Z20.822 Contact with and (suspected) exposure to COVID-19; Z79.899 Other long term (current) drug therapy
CPT/HCPCS: 36415; 71045; 74018; 80048; 80076; 81003; 83690; 85025; 87635; 99283; 99284

== ENCOUNTER 2021-12-06 07:20 | Emergency (ER) | payer MEDICAID, OTHER, SELFPAY ==
--- NOTE | ~2021-12-06 | US_ITS ---
EXAMINATION: US RETROPERITONEAL LIMITED (RENAL ONLY) CLINICAL INFORMATION: Flank pain. COMPARISON: Abdomen CT from 11/04/2021 TECHNIQUE: Limited sonographic imaging examination of the retroperitoneum. The examination is focused on the right kidney and urinary bladder. FINDINGS: The right kidney measures approximately 14.7 x 7 x 8 cm (SAG x AP x TRV). The kidney has normal cortical thickness and cortical echotexture. No sonographic evidence of renal stone or mass. The calyces are mildly dilated. No perinephric fluid collection. The urinary bladder has normal wall thickness. Both ureteral jets are visualized. No bladder calculi. US/US retroperitoneal limited IMPRESSION: * In this patient with chronic atrophy of left kidney, there is compensatory hypertrophy of the right kidney. * The mild hydronephrosis of the right kidney is similar in appearance compared to 11/04/2021. This examination does not exclude any residual stone of the right ureter. * Urinary bladder is normal.
--- NOTE | ~2021-12-06 | CT_ITS ---
EXAMINATION: CT ABDOMEN AND PELVIS WITHOUT CONTRAST CLINICAL INFORMATION: Right flank pain. COMPARISON: 11/04/2021 CT scan of the abdomen and pelvis TECHNIQUE: Multidetector volumetric imaging was performed from the superior aspect of the liver through the pubic symphysis. Sagittal and coronal reformatted images were obtained on the technologist's workstation. This CT examination was performed using dose optimization techniques as appropriate, variously including the following: *Automated exposure control *Adjustment of mA and/or kV according to patient size (this includes techniques or standardized protocols for targeted exams where dose is matched to indication/reason for exam; i.e. extremities or head) *Use of iterative reconstruction technique DLP: 597.85 mGy-cm FINDINGS: LUNG BASES: The visualized lung bases are unremarkable. LIVER, GALLBLADDER, AND BILIARY TREE: Unremarkable. PANCREAS: Unremarkable. SPLEEN: Unremarkable. ADRENAL GLANDS: Unremarkable. KIDNEYS AND URETERS: Mild to moderate right hydroureteronephrosis and nephrolithiasis caused by a 0.6 cm calculus in the level the right ureterovesical junction apices image 59, series 5). No right intrarenal calculi. Asymmetric atrophy of the left kidney exophytic fluid attenuation cyst off of the upper pole measures 2.5 cm (image 65, series 5) not requiring follow-up. Nonobstructing intrarenal calculus/calcification measuring 0.5 cm in the interpolar region. BLADDER: Unremarkable. GASTROINTESTINAL TRACT: The stomach, small bowel and appendix are unremarkable. The colon and rectum are unremarkable. ABDOMINAL WALL: No significant hernia is appreciated. LYMPH NODES: No lymphadenopathy. VASCULAR: Unremarkable. PELVIC VISCERA: Unremarkable. OSSEOUS STRUCTURES: L5-S1 mild to moderate degenerative disc disease. CT/CT abdomen pelvis wo IV con IMPRESSION: 1. Mild to moderate right hydronephrosis caused by a 0.6 cm calculus that has migrated from the proximal ureter to the level the right ureterovesical junction.
[2021-12-06 07:36] VITALS: BP 150/102; PULSE 77; RESP 18; TEMP 36.9; O2SAT 99; BMI 27.1
--- NOTE | 2021-12-06 07:43 | ED.MALEGU ---
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 He states he completed his levofloxacin course of antibiotics but it constipated him. He denies seeing a urologist. He was not aware he had a kidney stone. Stone was at [facility] 8x3mm MD Complaint: other (flank pain, urinary hesitancy) Onset (ago): day(s) (5) Duration: intermittent Location: right flank and abdomen Radiation: abdomen (rectum area) Severity: mild Quality: aching and dull Relieving factors: urination Exacerbating factors: none Context: other (hx of similar episode 11/04) Associated symptoms: Reports urinary retention Related Data Previous Rx's Medication Instructions Recorded carbamide peroxide 6.5 % ear drops 5 drp otic (ears) Q12H 4 days #15 08/04/21 (Debrox) mL sertraline 25 mg tablet (Zoloft) 25 mg PO DAILY #30 tabs 08/04/21 levofloxacin 750 mg tablet 750 mg PO Q24H 9 days #9 tabs 11/04/21 polyethylene glycol 3350 17 17 g PO BID #119 grams 11/30/21 gram/dose oral powder (Miralax) sodium phosphates 19 gram-7 118 ml OR DAILY PRN constipation 11/30/21 gram/118 mL enema (Fleet Enema) #133 mL ondansetron 4 mg disintegrating 4 mg PO Q8H PRN nausea and 12/06/21 tablet vomiting #20 tabs prednisone 20 mg tablet 40 mg PO DAILY 4 days #8 tabs 12/06/21 tamsulosin 0.4 mg capsule 0.4 mg PO DAILY 5 days #8 caps 12/06/21 Allergies Allergy/AdvReac Type Severity Reaction Status Date / Time No Known Allergies Allergy Verified 08/04/21 17:23 Review of Systems Review of Systems: Constitutional : No Fever, No Chills ENT/Mouth : No sore throat Eyes: No Eye Pain, No Swelling, No Redness Cardiovascular : No Chest Pain, No SOB Respiratory : No Cough, No Sputum, No Wheezing Gastrointestinal : positive Nausea, no Vomiting, No Diarrhea, positive abdominal pain Genitourinary : positive Dysuria, no urinary frequency, no Hematuria, positive Flank Pain, positive hesitancy Musculoskeletal : No joint pain, No Myalgias Skin : No Skin Lesions, No rash Neuro : No Weakness, No Numbness, No Headache Psych : No Anxiety/Panic, No Depression Heme/Lymph: No Bruising, No Lymphadenopathy Endocrine : No Polyuria, No Polydipsia All other systems reviewed and are negative [facility] Past Medical History Attestation statement: The following information was validated with the patient. Medical History Back pain Leg weakness Nephrolithiasis Stress at work Social History Social History Alcohol intake: never Patient Tobacco Use Status: Never used Tobacco Advance Directives: No Advance Directives Information Provided: Yes Physical Exam Vital Signs: Vital Signs: Last Vital Signs Temp 98.4 F 12/06/21 07:36 Pulse 72 12/06/21 09:26 Resp 19 12/06/21 09:26 BP 123/86 12/06/21 09:26 Pulse Ox 97 12/06/21 09:26 O2 Del Method 12/06/21 09:26 BMI result Body Mass Index 27.1 Appearance: Alert. Oriented X3. No acute distress. Eyes: Pupils equal, round and reactive to light. ENT: Pharynx normal. Neck: Normal inspection. Neck supple. CVS: Normal heart rate and rhythm. Pulses normal. Respiratory: No respiratory distress. Breath sounds normal. Abdomen: Soft and mild mid R abdomen - no rebound or guarding Skin: Skin warm and dry. Normal skin color. Normal skin turgor. Extremities: No lower extremity edema. No calf ttp Neuro: Oriented X 3. No motor deficit. No sensory deficit. Course Course Course Narrative: no UTI, normal kidney function, pain well controlled passed stone down to UVJ will dc home with prednisone and flomax - urology referral and precautions to return MDM - Male Genitourinary MDM Narrative Medical decision making narrative: 51 yo male with hx of UTI and kidney stone dx on 11/04 8x3mm at this time he denies knowing this and did not follow up with Urology. Will obtain labs, UA, Renal US. He does not appear in significa nt pain. Lab Data Result diagrams: 12/06/21 08:15 12/06/21 08:15 Labs: Lab Results 12/06/21 12/06/21 12/06/21 Range/Units 08:15 08:15 08:15 WBC 7.7 (4.8-10.8) X10*3/uL RBC 4.70 (4.60-5.80) X10*6/uL Hgb 13.8 L (14.0-18.0) g/dl Hct 40.7 L (42.0-52.0) % MCV 86.6 (80.0-98.0) fL MCH 29.4 (27.0-33.0) pg MCHC 33.9 (31.0-36.0) g/dl RDW 12.6 (11.0-16.0) % Plt Count 218 (160-400) X10*3/uL MPV 9.6 (9.4-12.4) fL Immature Gran % (Auto) 0.3 (0.0-0.4) % Neut % (Auto) 61.1 (45-73) % Lymph % (Auto) 29.1 (20-40) % [place] % (Auto) 7.5 (2-11) % Eos % (Auto) 1.3 (0-4) % Baso % (Auto) 0.7 (0-2) % Lymph # (Auto) 2.2 (1.2-4.9) X10*3/uL [place] # (Auto) 0.6 (0.1-1.2) X10*3/uL Eos # (Auto) 0.1 (0.0-0.4) X10*3/uL Baso # (Auto) 0.1 (0.0-0.2) X10*3/uL Abs Immat Gran (auto) 0.02 (0.00-0.03) X10*3/uL Absolute Neuts (auto) 4.7 (2.0-8.3) x10*3/uL Absolute Nucleated RBC 0.000 (0.0-0.012) X10*3/uL Nucleated RBC % (auto) 0.0 (0.0-0.2) /100WBC Sodium 138 (135-145) mmol/L Potassium 4.2 (3.3-5.1) mmol/L Chloride 102 (96-108) mmol/L Carbon Dioxide 23 (22-29) mmol/L Anion Gap 17 (12-20) BUN 19 H (9-16) mg/dL Creatinine 0.93 (0.5-1.4) mg/dL Estim Creat Clear Calc 97.8 Estimated GFR > 60 Random Glucose 139 H (60-115) mg/dL Calcium 9.9 (8.4-10.2) mg/dL Magnesium 2.1 (1.6-2.6) mg/dL Total Bilirubin 0.3 (0.0-1.0) mg/dL Direct Bilirubin < 0.2 (0.0-0.5) mg/dL AST 16 (5-37) U/L ALT 20 (0-40) U/L Alkaline Phosphatase 78 (39-117) U/L Total Protein 7.3 (6.5-8.0) g/dL Albumin 4.4 (3.5-5.0) g/dL Lipase 20 (8-78) U/L Urine Color Yellow Urine Appearance Clear Urine pH 5.5 (5.0-9.0) Ur Specific [place] <= 1.005 (1.005-1.025) Urine Protein Negative (Neg-Trace) mg/dL Urine Glucose (UA) Negative (Negative) mg/dL Urine Ketones Negative (Negative) mg/dL Urine Blood Small (1+) H (Negative) Urine Nitrite Negative (Negative) Ur Leukocyte Esterase Negative (Negative) Urine RBC 0-2 (0-2) /HPF Urine WBC 0-5 (0-5) /HPF Ur Squamous Epith Cells 0-2 (0-2) /HPF Urine Bacteria None Seen (None Seen) Hyaline Casts 0-2 (0-2) /LPF Discharge Plan Discharge Clinical Impression: Ureterolithiasis Patient Disposition: Home, Self-Care Instructions: Ureteral Stones (ED) Additional Instructions: you have a stone in your ureter that is right at the bladder junction. drink plenty of fluids. you will likely pass this. return for fevers, vomiting, increased pain. please call the urologist this week. if you do not feel you pass this in the next 5 days please call urologist as you may need surgery. voc? tem audi pedra no ureter que est? bem na elfego??o da bexiga. beber elizabeth quantidade de l?quidos. voc? provavelmente vai passar isso. retorno para amanda, v?mitos, aumento da yony. Por favor, ligue para o urologista esta semana. se voc? sentir que n?o passar? nos pr?ximos 5 saucedo, ligue para o urologista, pois pode precisar de cirurgia. Prescriptions: New prednisone 20 mg tablet 40 mg PO DAILY 4 Days Qty: 8 0RF tamsulosin 0.4 mg capsule 0.4 mg PO DAILY 5 Days Qty: 8 0RF ondansetron 4 mg tablet,disintegrating 4 mg PO Q8H PRN (Reason: nausea and vomiting) Qty: 20 0RF No Action levofloxacin 750 mg tablet 750 mg PO Q24H 9 Days Qty: 9 0RF Fleet Enema 19-7 gram/118 mL enema 118 ml OR DAILY PRN (Reason: constipation) Qty: 133 0RF polyethylene glycol 3350 [Miralax] 17 gram/dose powder 17 g PO BID Qty: 119 0RF sertraline [Zoloft] 25 mg tablet 25 mg PO DAILY Qty: 30 0RF Debrox 6.5 % drops 5 drp otic (ears) Q12H 4 Days Qty: 15 0RF Referrals: Nhan Mott MD [Physician] - 5 days Print Language: Portuguese
[2021-12-06 08:20] LABS: MANUAL DIFF FLAG NO
[2021-12-06 08:23] LABS: Appearance Urine Clear; Basophils Absolute Auto 0.1 X10*3/uL (0.0-0.2); Basophils Percent Auto 0.7 % (0-2); Color Urine Yellow; Eosinophils Absolute Auto 0.1 X10*3/uL (0.0-0.4); Eosinophils Percent Auto 1.3 % (0-4); Glucose Urine UA Negative (Negative); Hematocrit 40.7 % (42.0-52.0); Hemoglobin 13.8 g/dl (14.0-18.0); Imm Gran Abs Auto 0.02 X10*3/uL (0.00-0.03); Imm Gran Pct Auto 0.3 % (0.0-0.4); Leukocyte Esterase Urine Negative (Negative); Lymphocytes Absolute Auto 2.2 X10*3/uL (1.2-4.9); Lymphocytes Percent Auto 29.1 % (20-40); Mean Corpuscular HGB Conc 33.9 g/dl (31.0-36.0); Mean Corpuscular Hemoglobin 29.4 pg (27.0-33.0); Mean Corpuscular Volume 86.6 fL (80.0-98.0); Mean Platelet Volume 9.6 fL (9.4-12.4); Monocytes Absolute Auto 0.6 X10*3/uL (0.1-1.2); Monocytes Percent Auto 7.5 % (2-11); Neutrophils Absolute Auto 4.7 x10*3/uL (2.0-8.3); Neutrophils Percent Auto 61.1 % (45-73); Nitrite Urine Negative (Negative); PH 5.5 (5.0-9.0); Platelet Count 218 X10*3/uL (160-400); Red Cell Distribution Width 12.6 % (11.0-16.0); Specific Gravity - Urine <= 1.005 (1.005-1.025); UMIC TRIGGER UACC YES; Urine Blood Small (1+) (Negative); Urine Ketones Negative (Negative); Urine Protein Negative (Neg-Trace); White Blood Count 7.7 X10*3/uL (4.8-10.8)
[2021-12-06 08:31] LABS: Bacteria Urine None Seen (None Seen); Hyaline Casts Urine 0-2 /LPF (0-2); RBC Urine 0-2 /HPF (0-2); Squamous Epithelial Cell Urine 0-2 /HPF (0-2); WBC Urine 0-5 /HPF (0-5)
[2021-12-06 08:43] LABS: Alanine Aminotransferase 20 U/L (0-40); Albumin Level 4.4 g/dL (3.5-5.0); Alkaline Phosphatase 78 U/L (39-117); Anion Gap 17 (12-20); Aspartate Amino Transferase 16 U/L (5-37); Bilirubin Direct < 0.2 mg/dL (0.0-0.5); Bilirubin Total 0.3 mg/dL (0.0-1.0); Blood Urea Nitrogen 19 mg/dL (9-16); Calcium 9.9 mg/dL (8.4-10.2); Carbon Dioxide 23 mmol/L (22-29); Chloride 102 mmol/L (96-108); Creatinine Clr Calc Pharmacy 97.8; Estimated Glomerular Filt Rate > 60; Glucose Random 139 mg/dL (60-115); Lipase 20 U/L (8-78); Magnesium 2.1 mg/dL (1.6-2.6); Potassium 4.2 mmol/L (3.3-5.1); Sodium 138 mmol/L (135-145); Total Protein 7.3 g/dL (6.5-8.0)
[2021-12-06] MEDS: 0.9 % Sodium Chloride 1,000 ML 999 ML IV (09:25)
[2021-12-06 09:26] VITALS: BP 123/86; PULSE 72; RESP 19; O2SAT 97
--- NOTE | 2021-12-06 09:31 | PC.NURSE ---
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 Pt deneis pain at this time. He is happy he was able to urinate this morning. IVF running. No questions by patient at this time.
[2021-12-06] MEDS: predniSONE 20 MG TABLET 40 MG PO (11:01)
[2021-12-06] MEDS: Tamsulosin HCL 0.4 MG CAPSULE PO (11:02)
== END 2021-12-06 11:21 | disposition home or self-care (01) ==
PROVIDERS: Emergency Provider Emergency Medicine
DX: N13.2 Hydronephrosis with renal and ureteral calculous obstruction (principal); R10.9 Unspecified abdominal pain; Z87.442 Personal history of urinary calculi; R33.9 Retention of urine, unspecified
CPT/HCPCS: 36415; 74176; 76775; 80048; 80076; 81001; 83690; 83735; 85025; 96360; 96361; 99284

== ENCOUNTER → 2022-01-14 14:24 | Outpatient (BNVA) | payer MEDICAID, OTHER, SELFPAY | PROVIDERS: Visit Provider Urology | DX: N13.2 Hydronephrosis with renal and ureteral calculous obstruction (principal) | CPT/HCPCS: 99202 ==

== ENCOUNTER 2022-02-02 14:06 | Outpatient (REF) | payer MEDICAID, OTHER, SELFPAY ==
--- NOTE | ~2022-02-02 | XR_ITS ---
EXAMINATION: XR ABDOMEN KUB CLINICAL INDICATION: Calculus of ureter COMPARISON: Previous CT of the abdomen and pelvis December 2021 TECHNIQUE: AP view of the abdomen. FINDINGS: The previously identified right distal ureteral stone is no longer seen. Question 4 mm left renal stone in between the L1 and L2 transverse processes. Unremarkable bowel gas pattern. Sclerotic densities in the right proximal femur and pelvis probably representing bone islands. XR/XR KUB IMPRESSION: Right distal ureteral stone no longer seen.
== END 2022-02-02 14:07 | disposition home or self-care (01) ==
LOC: HO.XRAY 14:06
PROVIDERS: Visit Provider Urology
DX: N20.1 Calculus of ureter (principal)
CPT/HCPCS: 74018

== ENCOUNTER 2022-03-25 12:36 | Outpatient (REF) | payer MEDICAID, OTHER, SELFPAY ==
--- NOTE | ~2022-03-25 | US_ITS ---
EXAMINATION: US RETROPERITONEAL LIMITED (RENAL ONLY) CLINICAL INFORMATION: Unspecified hydronephrosis. COMPARISON: X-ray KUB 02/02/2022 and 11/30/2021. CT of the abdomen and pelvis and ultrasound of the kidneys and bladder 12/06/2021. TECHNIQUE: Real-time imaging of the kidneys. FINDINGS: RIGHT KIDNEY: 14.1 x 7.4 x 6.4 cm (SAG x AP x TRV). The kidney is significantly larger than the left probably secondary to compensatory hypertrophy, contour, and echogenicity. Renal cortical thickness is normal. No renal calculi or hydronephrosis. There is a 1.6 x 1.3 x 1.9 cm benign Bosniak class I simple cyst in the mid right kidney. No solid masses are seen. LEFT KIDNEY: 7.9 x 4.2 x 4.8 cm (SAG x AP x TRV). The left kidney is small. Renal cortical thickness is normal. No hydronephrosis. An upper pole benign Bosniak class I cyst is seen measuring 3.1 x 2.6 x 2.9 cm. No solid renal masses. There is an upper pole shadowing focus measuring 5 x 5 x 6 mm consistent with a nonobstructing calculus. US/US renal BI IMPRESSION: 1. Small left kidney with nonobstructing upper pole calculus. 2. Normal-appearing right kidney with compensatory hypertrophy. 3. Bilateral benign Bosniak class I simple renal cysts which need no further imaging or follow up.
== END 2022-03-25 12:37 | disposition home or self-care (01) ==
LOC: HO.US 12:36
PROVIDERS: Visit Provider Urology
DX: N20.0 Calculus of kidney (principal); N13.30 Unspecified hydronephrosis
CPT/HCPCS: 76775

== ENCOUNTER 2022-06-13 12:40 | Outpatient (REF) | payer MEDICAID, SELFPAY ==
--- NOTE | ~2022-06-13 | US_ITS ---
EXAMINATION: US RETROPERITONEAL LIMITED (RENAL ONLY) CLINICAL INFORMATION: Right flank pain. COMPARISON: Ultrasound retroperitoneal limited (renal only) 03/25/2022. TECHNIQUE: Real-time imaging of the kidneys. FINDINGS: RIGHT KIDNEY: 12.8 x 7.6 x 6.3 cm (SAG x AP x TRV). The kidney is normal in size, contour, and echogenicity. Renal cortical thickness is normal. No calculi or focal parenchymal lesions. No hydronephrosis. LEFT KIDNEY: 6.2 x 3.8 x 4.2 cm (SAG x AP x TRV). The kidney is normal in contour and echogenicity. Renal cortical thickness is normal. No hydronephrosis. Kidney measures atrophic. Benign-appearing 2.6 cm renal cysts, no follow-up imaging recommended. 6 mm nonobstructing midpole renal stone. US/US renal BI IMPRESSION: Left kidney is atrophic similar to prior. 6 mm nonobstructing left midpole renal stone. No hydronephrosis.
== END 2022-06-13 12:41 | disposition home or self-care (01) ==
LOC: HO.US 12:40
PROVIDERS: Visit Provider Internal Medicine
DX: R10.9 Unspecified abdominal pain (principal)
CPT/HCPCS: 76775

== ENCOUNTER 2022-07-21 03:56 | Emergency (ER) | payer MEDICAID, OTHER, SELFPAY ==
--- NOTE | ~2022-07-21 | XR_ITS ---
EXAMINATION: XR ABDOMEN KUB CLINICAL INDICATION: Right flank pain. History of stones. COMPARISON: February 02, 2022 TECHNIQUE: AP view of the abdomen. FINDINGS: The bowel gas pattern is normal with no evidence of ileus or obstruction. There is degenerative disc disease at the L5-S1 level. Sacroiliac joints unremarkable. There are some stable sclerotic lesions seen within the left acetabulum, left ischium, and proximal right femur. Hip joint is maintained. There is a 4 mm calcification seen at the L1-L2 disc space level which may represent a ureteral pelvic calculus or possible proximal ureteral calculus. Right psoas margin is well-defined. Left psoas margin is not as well-defined but present. XR/XR KUB IMPRESSION: 4 mm calcific density about the left L1-L2 disc space level as described.
[2022-07-21 04:32] VITALS: BP 150/101; PULSE 84; RESP 18; TEMP 36.8; O2SAT 99; BMI 29.1
[2022-07-21 04:47] VITALS: BP 143/89; PULSE 80; RESP 18; TEMP 36.7; O2SAT 98
[2022-07-21 04:59] LABS: Basophils Percent Auto 0.5 % (0-2); Eosinophils Absolute Auto 0.1 X10*3/uL (0.0-0.4); Eosinophils Percent Auto 1.3 % (0-4); Hematocrit 39.2 % (42.0-52.0); Hemoglobin 13.4 g/dl (14.0-18.0); Imm Gran Abs Auto 0.02 X10*3/uL (0.00-0.03); Imm Gran Pct Auto 0.3 % (0.0-0.4); Lymphocytes Absolute Auto 2.8 X10*3/uL (1.2-4.9); Lymphocytes Percent Auto 45.2 % (20-40); MANUAL DIFF FLAG NO; Mean Corpuscular HGB Conc 34.2 g/dl (31.0-36.0); Mean Corpuscular Hemoglobin 28.6 pg (27.0-33.0); Mean Corpuscular Volume 83.8 fL (80.0-98.0); Mean Platelet Volume 9.1 fL (9.4-12.4); Monocytes Absolute Auto 0.5 X10*3/uL (0.1-1.2); Monocytes Percent Auto 7.8 % (2-11); Neutrophils Absolute Auto 2.8 x10*3/uL (2.0-8.3); Neutrophils Percent Auto 44.9 % (45-73); Platelet Count 208 X10*3/uL (160-400); Red Blood Count 4.68 X10*6/uL (4.60-5.80); Red Cell Distribution Width 12.6 % (11.0-16.0); White Blood Count 6.2 X10*3/uL (4.8-10.8)
[2022-07-21 05:03] LABS: Appearance Urine Clear; Color Urine Yellow; Glucose Urine UA Negative (Negative); Leukocyte Esterase Urine Negative (Negative); Nitrite Urine Negative (Negative); Specific Gravity - Urine <= 1.005 (1.005-1.025); Urine Blood Negative (Negative); Urine Ketones Negative (Negative); Urine Protein Negative (Neg-Trace)
[2022-07-21 05:17] LABS: Anion Gap 10 (12-20); Blood Urea Nitrogen 14 mg/dL (9-16); Calcium 9.2 mg/dL (8.4-10.2); Carbon Dioxide 27 mmol/L (22-29); Chloride 109 mmol/L (96-108); Creatinine Clr Calc Pharmacy 101.3; Estimated Glomerular Filt Rate > 60; Glucose Random 114 mg/dL (60-115); Potassium 3.9 mmol/L (3.3-5.1); Sodium 142 mmol/L (135-145)
[2022-07-21 06:11] VITALS: BP 140/92; PULSE 77; RESP 18; O2SAT 96
--- NOTE | 2022-07-21 07:42 | ED.ABDPAIN ---
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 Patient states that he was informed that his surgery did not cover surgery and so as far as he knows this down has not passed. He denies any fever, chills, nausea, vomiting denies any recent traumatic injury or penile discharges states he is sexually active in a monogamous relationship and denies any penile discharge states that on ejaculations he experiences prostate pain . Related Data Previous Rx's Medication Instructions Recorded carbamide peroxide 6.5 % ear drops 5 drp otic (ears) Q12H 4 days #15 08/04/21 (Debrox) mL sertraline 25 mg tablet (Zoloft) 25 mg PO DAILY #30 tabs 08/04/21 levofloxacin 750 mg tablet 750 mg PO Q24H 9 days #9 tabs 11/04/21 polyethylene glycol 3350 17 17 g PO BID #119 grams 11/30/21 gram/dose oral powder (Miralax) sodium phosphates 19 gram-7 118 ml GA DAILY PRN constipation 11/30/21 gram/118 mL enema (Fleet Enema) #133 mL ondansetron 4 mg disintegrating 4 mg PO Q8H PRN nausea and 12/06/21 tablet vomiting #20 tabs prednisone 20 mg tablet 40 mg PO DAILY 4 days #8 tabs 12/06/21 tamsulosin 0.4 mg capsule 0.4 mg PO DAILY 5 days #90 caps 01/14/22 ketorolac 10 mg tablet 10 mg PO Q6H PRN pain 5 days #20 07/21/22 tabs tamsulosin 0.4 mg capsule (Flomax) 0.4 mg PO BEDTIME #4 caps 07/21/22 Allergies Allergy/AdvReac Type Severity Reaction Status Date / Time No Known Allergies Allergy Verified 08/04/21 17:23 Review of Systems Review of Systems Pertinent positives and negatives as stated in HPI PMFSH Past Medical History Source: nursing notes reviewed Medical History Back pain Leg weakness Nephrolithiasis Stress at work Social History Social History Alcohol intake: never Patient Tobacco Use Status: Never used Tobacco Smoked in Last 30 Days: No Use of substances other than those prescribed or required for medical reasons: No Advance Directives: No Advance Directives Information Provided: No Physical Exam ED Vital Signs: Vital Signs - 24 hr 07/21/22 04:32 07/21/22 04:47 07/21/22 06:11 Temperature 98.2 F 98.0 F Pulse Rate 84 80 77 Respiratory Rate 18 18 18 Blood Pressure 150/101 H 143/89 H 140/92 H Pulse Oximetry 99 98 96 Oxygen Delivery Method Room Air Room Air Room Air 07/21/22 08:20 Temperature 97.7 F Pulse Rate 78 Respiratory Rate 16 Blood Pressure 143/97 H Pulse Oximetry 96 Oxygen Delivery Method Room Air BMI result Body Mass Index 29.1 VITAL SIGNS: Reviewed. GENERAL: Well developed, well nourished, in no acute distress. HEAD: Normocephalic/atraumatic EYES: PERRLA, EOMI EARS: Ext canals without abnormality NOSE: Nares patent bilateral OROPHARYNX: no oral lesions noted, posterior pharynx clear NECK: Supple, no adenopathy LUNGS: Normal breath sounds. No adventitious sounds or accessory muscle use. SpO2<96> CARDIOVASCULAR: Regular rate and rhythm without noted murmurs ABDOMEN: Soft, non-tender, non-distended with bowel sounds, no CVA tenderness MUSCULOSKELETAL: No tenderness, deformities, or effusions noted on gross inspection. EXTREMITIES: No cyanosis, clubbing or edema. SKIN: Inspection of the skin reveals no rashes, NEUROLOGIC: Alert and oriented x 4. Strength and sensation to light touch were grossly intact x 4. Medical Decision Making Medical Decision Making MDM Narrative: 52-year-old male with history and clinical presentation after review of all investigations consistent for JOE, underlying infection to include no evidence on urinalysis to suggest prostate infection, will provide patient with combination analgesics and obtain a KUB. Otherwise, if the KUB is negative will refer the patient back to his primary care provider as well as Urology. I reviewed the Urology note and do not see any mention of patient being unable to have the stone removed. Review the KUB which demonstrates the possibility of a 4 mm stone at the L1/L2, patient denies any difficulty with dysuria, renal function has been maintained there is no nausea/vomiting/fevers/chills and will discharge patient on analgesics and instruct him to follow-up with urology. Differential Diagnosis Please see the discussion above Lab Data Please see the discussion above 07/21/22 04:55 07/21/22 04:55 Labs: Lab Results 07/21/22 07/21/22 07/21/22 Range/Units 04:55 04:55 04:58 WBC 6.2 (4.8-10.8) X10*3/uL RBC 4.68 (4.60-5.80) X10*6/uL Hgb 13.4 L (14.0-18.0) g/dl Hct 39.2 L (42.0-52.0) % MCV 83.8 (80.0-98.0) fL MCH 28.6 (27.0-33.0) pg MCHC 34.2 (31.0-36.0) g/dl RDW 12.6 (11.0-16.0) % Plt Count 208 (160-400) X10*3/uL MPV 9.1 L (9.4-12.4) fL Immature Gran % (Auto) 0.3 (0.0-0.4) % Neut % (Auto) 44.9 L (45-73) % Lymph % (Auto) 45.2 H (20-40) % [place] % (Auto) 7.8 (2-11) % Eos % (Auto) 1.3 (0-4) % Baso % (Auto) 0.5 (0-2) % Lymph # (Auto) 2.8 (1.2-4.9) X10*3/uL [place] # (Auto) 0.5 (0.1-1.2) X10*3/uL Eos # (Auto) 0.1 (0.0-0.4) X10*3/uL Baso # (Auto) 0.0 (0.0-0.2) X10*3/uL Abs Immat Gran (auto) 0.02 (0.00-0.03) X10*3/uL Absolute Neuts (auto) 2.8 (2.0-8.3) x10*3/uL Absolute Nucleated RBC 0.000 (0.0-0.012) X10*3/uL Nucleated RBC % (auto) 0.0 (0.0-0.2) /100WBC Sodium 142 (135-145) mmol/L Potassium 3.9 (3.3-5.1) mmol/L Chloride 109 H (96-108) mmol/L Carbon Dioxide 27 (22-29) mmol/L Anion Gap 10 L (12-20) BUN 14 (9-16) mg/dL Creatinine 0.95 (0.5-1.4) mg/dL Estim Creat Clear Calc 101.3 Estimated GFR > 60 Random Glucose 114 (60-115) mg/dL Calcium 9.2 D (8.4-10.2) mg/dL Urine Color Yellow Urine Appearance Clear Urine pH 6.0 (5.0-9.0) Ur Specific [place] <= 1.005 (1.005-1.025) Urine Protein Negative (Neg-Trace) mg/dL Urine Glucose (UA) Negative (Negative) mg/dL Urine Ketones Negative (Negative) mg/dL Urine Blood Negative (Negative) Urine Nitrite Negative (Negative) Ur Leukocyte Esterase Negative (Negative) Radiology Impression Radiologist Impression: My interpretation is in agreement with radiology's impression. External Record Review External record reviewed: Outpatient record, Prior outpatient labs and Prior outpatient radiology Medications Administered Discontinued Medications Generic Name Dose Route Start Last Admin Trade Name Freq PRN Reason Stop Dose Admin Acetaminophen 975 mg 07/21/22 07:44 07/21/22 08:17 Acetaminophen 325 Mg Tablet PO 07/21/22 07:45 975 mg ONCE ONE Administration Ketorolac Tromethamine 15 mg 07/21/22 07:44 07/21/22 08:17 Ketorolac Tromethamine 15 Mg/Ml Vial IM 07/21/22 07:45 15 mg ONCE ONE Administration Discharge Plan Discharge Clinical Impression: Ureteral stone Patient Disposition: Home, Self-Care Instructions: Renal Colic (ED), Ureteral Stones (ED) Additional Instructions: 1. Retome todos os rem?lynne caseiros prescritos. 2. Voc? tem um c?lculo de 4 mm, iremos fornecer-lhe medica??o para a yony, bem keshav um encaminhamento para acompanhamento com urologia. Por favor, ligue para o escrit?li de urologia hoje para marcar audi consulta. 3. Fa?a o acompanhamento com seu prestador de cuidados prim?robledo ligando para o consult?li hoje. Retorne ao pronto-joaquina para qualquer agravamento dos sintomas 1. Resume all home medications as prescribed. 2. You have a 4 mm stone, we will provide you with pain medication as well as a referral to follow-up with urology. Please call the urology office today to set up an appointment. 3. Follow-up with your primary care provider by calling the office today. Return to the ER for any worsening symptoms Prescriptions: New ketorolac 10 mg tablet 10 mg PO Q6H PRN (Reason: pain) 5 Days Qty: 20 0RF Rx Instructions: Patient received Toradol in the emergency room. tamsulosin [Flomax] 0.4 mg capsule 0.4 mg PO BEDTIME Qty: 4 0RF No Action levofloxacin 750 mg tablet 750 mg PO Q24H 9 Days Qty: 9 0RF Fleet Enema 19-7 gram/118 mL enema 118 ml GA DAILY PRN (Reason: constipation) Qty: 133 0RF polyethylene glycol 3350 [Miralax] 17 gram/dose powder 17 g PO BID Qty: 119 0RF sertraline [Zoloft] 25 mg tablet 25 mg PO DAILY Qty: 30 0RF Debrox 6.5 % drops 5 drp otic (ears) Q12H 4 Days Qty: 15 0RF prednisone 20 mg tablet 40 mg PO DAILY 4 Days Qty: 8 0RF ondansetron 4 mg tablet,disintegrating 4 mg PO Q8H PRN (Reason: nausea and vomiting) Qty: 20 0RF tamsulosin 0.4 mg capsule 0.4 mg PO DAILY 5 Days Qty: 90 1RF Referrals: Barry Zamorano MD [Physician] - Print Language: Tamazight
[2022-07-21] MEDS: Ketorolac Tromethamine 15 MG/ML VIAL IM (08:17)
[2022-07-21] MEDS: Acetaminophen 325 MG TABLET 975 MG PO (08:17)
[2022-07-21 08:20] VITALS: BP 143/97; PULSE 78; RESP 16; TEMP 36.5; O2SAT 96
--- NOTE | 2022-07-21 08:22 | PC.NURSE ---
Alert and oriented, resp even and unlabored. Awaiting xray results, medicated per the MAR. Call roberto within reach
== END 2022-07-21 08:57 | disposition home or self-care (01) ==
PROVIDERS: Emergency Provider Student in an Organized Health Care Education/Training Program
DX: N20.1 Calculus of ureter (principal); R10.9 Unspecified abdominal pain
CPT/HCPCS: 36415; 74018; 80048; 81003; 85025; 96372; 99284; J1885

== ENCOUNTER 2022-11-28 13:05 | Outpatient (REF) | payer MEDICAID, OTHER, SELFPAY ==
[2022-11-28 14:12] LABS: MANUAL DIFF FLAG NO
[2022-11-28 14:15] LABS: Basophils Percent Auto 0.6 % (0-2); Eosinophils Absolute Auto 0.1 X10*3/uL (0.0-0.4); Eosinophils Percent Auto 0.9 % (0-4); Hematocrit 44.5 % (42.0-52.0); Hemoglobin 14.8 g/dl (14.0-18.0); Imm Gran Abs Auto 0.02 X10*3/uL (0.00-0.03); Imm Gran Pct Auto 0.3 % (0.0-0.4); Lymphocytes Absolute Auto 2.9 X10*3/uL (1.2-4.9); Lymphocytes Percent Auto 43.6 % (20-40); Mean Corpuscular HGB Conc 33.3 g/dl (31.0-36.0); Mean Corpuscular Hemoglobin 28.6 pg (27.0-33.0); Mean Corpuscular Volume 86.1 fL (80.0-98.0); Mean Platelet Volume 9.6 fL (9.4-12.4); Monocytes Absolute Auto 0.4 X10*3/uL (0.1-1.2); Monocytes Percent Auto 6.5 % (2-11); Neutrophils Absolute Auto 3.2 x10*3/uL (2.0-8.3); Neutrophils Percent Auto 48.1 % (45-73); Platelet Count 248 X10*3/uL (160-400); Red Blood Count 5.17 X10*6/uL (4.60-5.80); Red Cell Distribution Width 12.6 % (11.0-16.0); White Blood Count 6.6 X10*3/uL (4.8-10.8)
[2022-11-28 14:20] LABS: Appearance Urine Clear; Color Urine Yellow; Glucose Urine UA Negative (Negative); Leukocyte Esterase Urine Negative (Negative); Nitrite Urine Negative (Negative); PH 5.5 (5.0-9.0); Specific Gravity - Urine 1.015 (1.005-1.025); Urine Blood Negative (Negative); Urine Ketones Negative (Negative); Urine Protein Negative (Neg-Trace)
[2022-11-28 15:04] LABS: Anion Gap 14 (12-20); Blood Urea Nitrogen 16 mg/dL (9-16); Calcium 9.7 mg/dL (8.4-10.2); Carbon Dioxide 24 mmol/L (22-29); Chloride 106 mmol/L (96-108); Cholesterol 205 mg/dL (<200); Estimated Glomerular Filt Rate > 60; Glucose Fasting 135 mg/dL (60-99); HDL Cholesterol 32 mg/dL (>40); LDL Cholesterol Calculated 124 mg/dL (<100); Potassium 3.8 mmol/L (3.3-5.1); Sodium 140 mmol/L (135-145); Triglycerides 248 mg/dL (<150)
[2022-11-28 15:09] LABS: Prostate Specific Antigen 0.46 ng/mL (<0.05-4.0)
[2022-11-28 15:10] LABS: TSH reflex Free T4 1.19 uIU/mL (0.32-4.0)
== END 2022-11-28 13:06 | disposition home or self-care (01) ==
LOC: HO.CHCLDS 13:05
PROVIDERS: Visit Provider Internal Medicine
DX: Z00.00 Encounter for general adult medical examination without abnormal findings (principal); Z12.5 Encounter for screening for malignant neoplasm of prostate
CPT/HCPCS: 36415; 80048; 80061; 81003; 84153; 84443; 85025

== ENCOUNTER 2023-01-02 12:46 | Outpatient (REF) | payer MEDICAID, OTHER, SELFPAY ==
[2023-01-02 14:22] LABS: Estimated Average Glucose 114 mg/dL; Hemoglobin A1c % 5.6 % (<6.0)
[2023-01-02 14:28] LABS: Glucose Random 137 mg/dL (60-115)
[2023-01-03 08:11] LABS: HBS Num1 131.87 mIU/mL (0-7.99); HBc Num1 0.06 S/CO (0.00-0.79); HBsAGNum1 0.35 S/CO (0.00-0.99); Hepatitis A Antibody IgM 0.49 Index (0-0.79); Hepatitis B Core Antibody Nonreactive (Nonreactive); Hepatitis B Surface Antigen Negative (Negative); ~HepC Num1 0.03 S/CO (0.00-0.79); ~Hepatitis A Antibody IgM Nonreactive (Nonreactive); ~Hepatitis B Surface Antibody REACTIVE (Nonreactive); ~Hepatitis C Antibody Nonreactive (Nonreactive)
[2023-01-04 05:09] LABS: Rubeola IgG (Measles) >300.00 AU/mL
[2023-01-04 13:34] LABS: TS Negative Control Passed; TS Panel A 0; TS Panel B 0; TS Positive Control Passed; TSpotTB Negative (Negative)
[2023-01-07 14:53] LABS: Testosterone, Free 35.9 pg/mL (35.0-155.0); Testosterone, Total 185 ng/dL (250-1100)
== END 2023-01-02 12:47 | disposition home or self-care (01) ==
LOC: HO.CHCLDS 12:46
PROVIDERS: Visit Provider Internal Medicine
DX: Z00.00 Encounter for general adult medical examination without abnormal findings (principal); R73.09 Other abnormal glucose; N50.0 Atrophy of testis; N52.9 Male erectile dysfunction, unspecified; Z11.1 Encounter for screening for respiratory tuberculosis
CPT/HCPCS: 36415; 82947; 83036; 84402; 84403; 86481; 86704; 86706; 86709; 86735; 86762; 86765; 86787; 86803; 87340

== ENCOUNTER 2023-05-15 12:04 | Outpatient (REF) | payer MEDICAID, OTHER, SELFPAY ==
--- NOTE | ~2023-05-15 | XR_ITS ---
EXAMINATION: XR HIP, RIGHT CLINICAL INFORMATION: Chronic lateral right hip pain. COMPARISON: KUB of May 21, 2022. TECHNIQUE: Two views of the right hip. FINDINGS: Redemonstration of a sclerotic focus with adjacent smaller foci overlying the right intertrochanteric region, possibly representing bone islands. Mild narrowing with degenerative changes along the right hip joint. Alignment preserved. XR/XR hip RT min 2V IMPRESSION: 1. Mild degenerative changes in the right hip. 2. Redemonstration of a sclerotic focus with adjacent smaller foci overlying the right intertrochanteric region, possibly representing bone islands. Additional imaging with CT scan could be considered if there is concern for fracture or other pathology.
== END 2023-05-15 12:05 | disposition home or self-care (01) ==
LOC: HO.XRAY 12:04
PROVIDERS: Visit Provider Internal Medicine
DX: M25.551 Pain in right hip (principal); G89.29 Other chronic pain
CPT/HCPCS: 73502